=== PATIENT | female | born 1950 | race African-American/Black ===

== ENCOUNTER 2019-04-16 12:22 | Emergency (ER) | payer MEDICARE, MEDICAID ==
[~2019-04-16] VITALS: Ht 170.2 cm; Wt 75.0 kg
[2019-04-16] MEDS ORDERED: HYDROCODONE/ACETAMINOPHEN 5/325MG TABLET PO STA ×2 (15:25→20:41)
[2019-04-16 22:56] LABS: BASOPHILS % 0.4 % (0.0-2.0); EOSINOPHILS % 0.3 % (0.0-5.0); HEMATOCRIT. 36.3 % (36.0-48.0); HEMOGLOBIN. 12.1 g/dL (12.0-16.0); LYMPHOCYTES % 29.5 % (20.0-50.0); MEAN CORPUSCULAR HEMOGLOBIN 32.6 pg (28.0-32.0); MEAN CORPUSCULAR VOLUME 97.7 fL (81.0-99.0); MEAN PLATELET VOLUME 9.1 fl (7.4-10.4); MONOCYTES % 12.4 % (2.0-8.0); NEUTROPHILS % 57.4 % (40.0-76.0); PLATELET 101 x1000/uL (130-400); RED BLOOD CELL COUNT 3.72 mill/uL (4.2-5.4); RED CELL DISTRIBUTION WIDTH 13.8 % (11.6-14.6)
[2019-04-16 23:00] LABS: CHLORIDE 112 mEq/L (98-107)
[2019-04-16 23:04] LABS: INR 1.2; PROTHROMBIN TIME 12.6 sec (9.6-11.0)
[2019-04-16 23:16] VITALS: BP 121/53
== END 2019-04-16 23:55 | disposition short-term general hospital (02) ==
LOC: ER 12:22
DX: S32.591A Other specified fracture of right pubis, initial encounter for closed fracture (principal); I10 Essential (primary) hypertension; V80.010A Animal-rider injured by fall from or being thrown from horse in noncollision accident, initial encounter; Y93.89 Activity, other specified; Y92.89 Other specified places as the place of occurrence of the external cause; Y99.8 Other external cause status
CPT/HCPCS: 36415; 73502; 73552; 93005; 99285